=== PATIENT | female | born 1965 | race American Indian/Alaskan Native ===

== ENCOUNTER 2017-02-04 08:59 | Emergency (ER) | payer OTHER ==
[2017-02-04 09:05] VITALS: BP 140/80
[2017-02-04] MEDS ORDERED: MOTRIN PO ONE (10:01)
[2017-02-04] MEDS ORDERED: MOTRIN ONE (10:06)
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
== END 2017-02-04 12:35 | disposition home or self-care (01) ==
LOC: ED 08:59
DX: S39.012A Strain of muscle, fascia and tendon of lower back, initial encounter (principal); S86.912A Strain of unspecified muscle(s) and tendon(s) at lower leg level, left leg, initial encounter; S46.912A Strain of unspecified muscle, fascia and tendon at shoulder and upper arm level, left arm, initial encounter; V89.2XXA Person injured in unspecified motor-vehicle accident, traffic, initial encounter; Y93.89 Activity, other specified; Y99.8 Other external cause status; Y92.488 Other paved roadways as the place of occurrence of the external cause
CPT/HCPCS: 72100; 99283